=== PATIENT | female | born 1980 | race Caucasian/White ===

== ENCOUNTER 2022-02-14 20:23 | Emergency (ER) | payer OTHER, SELFPAY ==
[2022-02-14 20:25] VITALS: BP 137/85; PULSE 86; RESP 18; TEMP 36.5; O2SAT 100; BMI 28.8
--- NOTE | 2022-02-14 20:50 | PC.NURSE ---
PT given warm blanket for comfort
--- NOTE | 2022-02-14 20:58 | HMH.EDNVD ---
Discharge Plan Disposition Patient Disposition: Home, Self-Care Prescriptions Prescriptions: New ondansetron HCl 4 mg Tablet 4 mg PO Q8H PRN (Reason: Nausea) Qty: 21 0RF Referrals Follow up/Referrals: Provider,Referral, MD [Primary Care Provider] - See instructions Clinical Impressions Clinical Impression: COVID-19 Instructions Patient Instructions: DI for COVID-19 (Suspected or Confirmed ) Discharge ED Provider: Nael Llanos Nausea/Vomiting/Diarrhea HPI General Chief complaint: Nausea/Vomiting/Diarrhea Stated complaint: nausea,CLIFTON Time Seen by Provider: 02/14/22 20:58 Mode of Arrival: Ambulatory Source of Information: Patient and Medical Record Limitations: No Limitations Description of Symptoms (Recalled from ER Triage Doc. by RN): pt states nausea headache and no appitite since 5am pt tested positive for covid. pt states to have taken advil and excedrin 4hrs ago History of Present Illness HPI Narrative: pt with clifton and nausea w/o abd pain or vomiting - has been exposed to covid-19 complaint: nausea Onset (ago): hour(s) Associated Abdominal Pain: No Severity: moderate Context: sick contacts Associated symptoms: headaches Related Data Previous Rx's Medication Instructions Recorded ondansetron HCl 4 mg tablet 4 mg PO Q8H PRN Nausea #21 tabs 02/14/22 Allergies Allergy/AdvReac Type Severity Reaction Status Date / Time No Known Allergies Allergy Verified 02/14/22 20:58 PFSH PFSH Social History Smoking Status: Current every day smoker alcohol intake: never current occupational status: employed Travel in the last 8 weeks: None ROS Obtained: Yes All systems reviewed & no additional complaints except as documented Physical Exam General General appearance: alert Head Head exam: normocephalic Eye Eye exam: Present PERRL and EOMI ENT ENT exam: Present mucous membranes moist Neck Neck exam: Present full ROM and trachea midline; Absent meningismus or lymphadenopathy Respiratory Respiratory exam: Absent respiratory distress Cardiovascular Cardiovascular exam: Present regular rate Abdominal Exam Abdominal exam: Present soft; Absent tenderness or organomegaly Extremities Exam Extremities exam: Present full ROM Neurological Exam Neurological exam: Present alert, oriented X3 and CN II-XII intact Psychiatric Psychiatric exam: Present normal affect Skin Skin exam: Absent rash Medical Decision Making Medical Records Medical records reviewed: Yes I reviewed the patient's medical records. Matthew Inquiry Pt receiving controlled substance: No Vital Signs: 02/14/22 20:25 02/14/22 21:00 02/14/22 21:01 Temperature 97.7 F Temperature Source Oral Pulse Rate 61 68 Pulse Rate [Left] 86 Respiratory Rate 18 Blood Pressure 96/59 L 96/59 L Blood Pressure [Right Arm] 137/85 Blood Pressure Mean [Right Arm] 102 02 Sat by Pulse Oximetry 100 99 98 Oxygen Delivery Method Room Air Room Air Lab Data Lab results reviewed: Yes I reviewed the patient's lab results. Lab Results 02/14/22 20:30: Urine Color Yellow, Urine Appearance Clear, Urine pH 6.0, Ur Specific [place] >= 1.030, Urine Protein Negative, Urine Glucose (UA) Negative, Urine Ketones Negative, Urine Blood 1+, Urine Nitrate Negative, Urine Bilirubin Negative, Urine Urobilinogen 1.0, Ur Leukocyte Esterase Negative 02/14/22 20:30: SARS-CoV-2 (PCR) Detected A, Influenza A Untype (PCR) Not detected, Influenza Type B (PCR) Not detected 02/14/22 21:38: WBC 2.8 L, RBC 4.26, Hgb 13.3, Hct 40.5, MCV 95.1, MCH 31.1, MCHC 32.7, RDW 13.1, Plt Count 216, MPV 7.9, Neut % (Auto) 71.5, Lymph % (Auto) 13.1, [place] % (Auto) 12.1 H, Eos % (Auto) 0.6, Baso % (Auto) 2.6 H, Neut # (Auto) 2.0, Lymph # (Auto) 0.4 L, [place] # (Auto) 0.3, Eos # (Auto) 0.0, Baso # (Auto) 0.1 02/14/22 21:38: Sodium 142, Potassium 3.7, Chloride 106, Carbon Dioxide 24, Anion Gap 15.7 H, BUN 18 H, Creatinine 0.60, Estimated Creat Clear 126, Estimated GFR
[2022-02-14 21:00] VITALS: BP 96/59; PULSE 61; O2SAT 99
[2022-02-14 21:01] VITALS: BP 96/59; PULSE 68; O2SAT 98
--- NOTE | 2022-02-14 21:01 | PC.NURSE ---
verbal and writen order list per dr hawkins entered
[2022-02-14 21:43] LABS: Influenza A, PCR Not Detected (NotDetected); Influenza B, PCR Not Detected (NotDetected)
[2022-02-14 21:45] LABS: Microscopic, Urine URINE MICROSCOPIC (MICROSCOPIC)
[2022-02-14 21:46] LABS: Coronavirus 19, PCR Detected (NotDetected)
[2022-02-14 21:52] LABS: Basophils # 0.1 K/mm3 (0-0.2); Basophils % 2.6 % (0.1-2.0); Eosinophils % 0.6 % (0.1-12.0); Hematocrit 40.5 % (37.0-47.0); Hemoglobin 13.3 g/dL (12.2-16.2); Lymphocytes # 0.4 K/mm3 (0.7-4.5); Lymphocytes % 13.1 % (10-50); Mean Corpuscular HGB Conc 32.7 g/dL (31.8-35.4); Mean Corpuscular Hemoglobin 31.1 pg (27.0-31.2); Mean Corpuscular Volume 95.1 fl (81-99); Mean Platelet Volume 7.9 fl (7.4-10.4); Monocytes # 0.3 K/mm3 (0.1-1.0); Monocytes % 12.1 % (1.7-9.3); Neutrophils % 71.5 % (37.0-80.0); Platelet Count 216 K/mm3 (142-424); Red Blood Count 4.26 M/mm3 (4.20-5.40); Red Cell Distribution Width 13.1 % (11.5-17.5); White Blood Count 2.8 K/mm3 (4.8-10.8)
[2022-02-14 21:53] LABS: Appearance,Urine CLEAR (Clear); Bilirubin,Urine Negative (Negative); Blood, Urine 1+ (Negative); Color,Urine YELLOW (Yellow); Glucose,Urine (UA) Negative (Negative); Ketones,Urine Negative (Negative); Leukocyte Esterase,Urine Negative (Negative); Nitrate,Urine Negative (Negative); Protein,Urine Negative (Negative); Specific Gravity, Urine >= 1.030 (1.005-1.030)
[2022-02-14 21:54] LABS: Chloride 106 mmol/L (98-107); Potassium 3.7 mmoL/L (3.5-5.1); Sodium 142 mmol/L (136-145)
[2022-02-14 21:56] LABS: Alanine Aminotransferase 14 U/L (12-78); Amylase 50 U/L (30-110); Anion Gap 15.7 mEq/L (5-15); Aspartate Amino Transferase 21 U/L (14-36); Blood Urea Nitrogen 18 mg/dl (7-17); Carbon Dioxide 24 mmol/L (22.0-30.0); Creatinine Clearance Estimated 126 mL/min (50-200); Estimated Glomerular Filt Rate 110 ml/min (>60); GFR (African American) 133 ML/MIN (>60); Lipase 31 U/L (23-300)
[2022-02-14 21:57] LABS: Albumin Level 3.9 g/dl (3.5-5.0); Albumin/Globulin Ratio 1.4 (1.1-1.8); Alkaline Phosphatase 36 U/L (38-126); Calcium 8.5 mg/dl (8.4-10.2); Globulin 2.8 g/dL (1.3-3.2); Glucose 95 mg/dl (74-100); Total Protein,Serum 6.7 g/dl (6.3-8.2)
[2022-02-14 21:58] LABS: Bilirubin,Total < 0.1 mg/dl (0.2-1.3)
--- NOTE | 2022-02-14 22:11 | PC.NURSE ---
Pt complains of nausea. RN notified.
[2022-02-14 22:16] LABS: Bacteria,Urine 1+ /lpf; Mucus,Urine 1+ /lpf
[2022-02-14 22:47] VITALS: BP 104/69; PULSE 75; RESP 16; TEMP 36.7; O2SAT 97
== END 2022-02-14 22:47 | disposition home or self-care (01) ==
PROVIDERS: Emergency Provider Emergency Medicine
DX: U07.1 COVID-19 (principal); R11.2 Nausea with vomiting, unspecified; R19.7 Diarrhea, unspecified; F17.210 Nicotine dependence, cigarettes, uncomplicated; Z79.899 Other long term (current) drug therapy
CPT/HCPCS: 80053; 81001; 82150; 83690; 85025; 96361; 96374; 96375; 99284; C9803; J2405; U0003; U0005

== ENCOUNTER 2022-10-24 13:28 | Emergency (ER) | payer OTHER, SELFPAY ==
[2022-10-24 13:29] VITALS: BP 168/88; PULSE 71; RESP 16; TEMP 36.7; O2SAT 97; BMI 26.2
--- NOTE | 2022-10-24 13:46 | HMH.EDGENADL ---
Discharge Plan Disposition Patient Disposition: Home, Self-Care Prescriptions Prescriptions: New ondansetron 4 mg tablet,disintegrating 4 mg PO Q6H PRN (Reason: nausea and vomiting) 5 Days Qty: 20 0RF No Action ondansetron HCl 4 mg Tablet 4 mg PO Q8H PRN (Reason: Nausea) Qty: 21 0RF Referrals Follow up/Referrals: Provider,Referral, MD [Primary Care Provider] - See instructions Clinical Impressions Clinical Impression: URI (upper respiratory infection), Encounter for smoking cessation counseling, Nausea & vomiting Discharge ED Provider: Steve Barriga General Adult HPI General Chief complaint: Upper Respiratory Infection Stated complaint: Cough chest congestion nausea headache Time Seen by Provider: 10/24/22 13:46 Mode of Arrival: Ambulatory Source of Information: Patient Limitations: No Limitations Description of Symptoms (Recalled from ER Triage Doc. by RN): 42 yo F presents to ED with c/o cough, nausea, chest congestion, sore throat. symptoms began last night. pt states that she was around her mother 10/21/22 and she has pneumonia. pt thinks that she may have gotten something from her mother. History of Present Illness HPI narrative: Patient is a 42-year-old female with a history of chronic smoking presenting today with some respiratory complaints. She states she has been around her mother recently was diagnosed with pneumonia and over the last 24 hours she states she has had muscle aches as well as a cough and just overall not feeling well. She denies any fever denies any respiratory distress or wheezing or history of obstructive lung disease. She has not been smoking over the last 48 hours. Related Data Previous Rx's Medication Instructions Recorded ondansetron HCl 4 mg tablet 4 mg PO Q8H PRN Nausea #21 tabs 02/14/22 ondansetron 4 mg disintegrating 4 mg PO Q6H PRN nausea and 10/24/22 tablet vomiting 5 days #20 tabs Allergies Allergy/AdvReac Type Severity Reaction Status Date / Time No Known Allergies Allergy Verified 02/14/22 20:58 [facility] Disclaimer: The information contained in this section may have been updated after the patient was seen, as this information can be updated by other users. Social History (Updated 02/14/22 @ 22:19 by Nael Llanos MD) Smoking Status: Current every day smoker alcohol intake: never current occupational status: employed Travel in the last 8 weeks: None ROS Obtained: Yes All systems reviewed & no additional complaints except as documented Physical Exam General General appearance: alert Respiratory Respiratory exam: Present normal lung sounds bilaterally; Absent respiratory distress Cardiovascular Cardiovascular exam: Present regular rate, normal rhythm and bradycardia Neurological Exam Neurological exam: Present alert and oriented X3 Medical Decision Making Matthew Inquiry Pt receiving controlled substance: No Vital Signs: 10/24/22 13:29 Temperature 98.0 F Temperature Source Oral Pulse Rate [Left] 71 Respiratory Rate 16 Blood Pressure [Right Arm] 168/88 H Blood Pressure Mean [Right Arm] 114 02 Sat by Pulse Oximetry 97 Lab Data Lab results reviewed: Yes I reviewed the patient's lab results. Lab Results 10/24/22 13:34: SARS-CoV-2 (PCR) Not detected, Influenza A Untype (PCR) Not detected, Influenza Type B (PCR) Not detected Orders (Tests/Meds): ED MEDICATIONS Discontinued Medications Generic Name Dose Route Start Last Admin Trade Name Freq PRN Reason Stop Dose Admin Albuterol Sulfate 4 puff 10/24/22 13:50 10/24/22 14:04 Albuterol-Hfa 90mcg/Puff Inhaler 8gm IH 10/24/22 13:51 4 puff ONCE ONE Administration Ibuprofen 800 mg 10/24/22 13:50 10/24/22 13:59 Ibuprofen 400 Mg Tablet PO 10/24/22 13:51 800 mg ONCE ONE Administration Miscellaneous 1 unit 10/24/22 13:50 10/24/22 14:04 Aerochamber/Optihaler MC 10/24/22 13:51 1 unit ONCE ONE Administration Ondansetron HCl 4 m
--- NOTE | 2022-10-24 13:50 | XR_ITS ---
FINAL REPORT CLINICAL HISTORY: Acute cough FINDINGS: There is no evidence of effusion or other pleural disease. The mediastinum has a normal appearance. The cardiac silhouette is unremarkable. IMPRESSION: Unremarkable chest exam. Reviewed, Interpreted and Dictated by Radames Staples MD Transcribed by Annabella Banerjee Authenticated and [facility]
[2022-10-24 13:53] LABS: Coronavirus 19, PCR Not Detected (NotDetected); Influenza A, PCR Not Detected (NotDetected); Influenza B, PCR Not Detected (NotDetected)
--- NOTE | 2022-10-24 14:01 | PC.NURSE ---
called RT for inhaler and education
[2022-10-24 14:31] VITALS: BP 122/72; PULSE 72; RESP 20; O2SAT 95
[2022-10-24 15:37] VITALS: BP 129/78; PULSE 81; RESP 20; TEMP 36.7; O2SAT 96
== END 2022-10-24 15:38 | disposition home or self-care (01) ==
PROVIDERS: Emergency Provider Student in an Organized Health Care Education/Training Program
DX: J06.9 Acute upper respiratory infection, unspecified (principal); R11.2 Nausea with vomiting, unspecified; F17.200 Nicotine dependence, unspecified, uncomplicated
CPT/HCPCS: 71046; 87636; 99283; 99284; C9803; U0003; U0005

== ENCOUNTER 2023-01-07 20:54 | Emergency (ER) | payer OTHER, SELFPAY ==
[2023-01-07 20:55] VITALS: BP 159/108; PULSE 82; RESP 20; TEMP 37.1; O2SAT 100; BMI 26.2
[2023-01-07 21:05] LABS: Coronavirus 19, PCR Not Detected (NotDetected); Influenza A, PCR Not Detected (NotDetected); Influenza B, PCR Not Detected (NotDetected)
--- NOTE | 2023-01-07 21:06 | ECG_ITS ---
APPROVED REPORT Exam: Resting ECG HR:80 bpm ECG Measurements Heart Rate 80 AXES SC 146 P 78 QRSd 90 QRS 55 QT 355 T 57 QTc 391 Conclusion SINUS RHYTHM WITH SINUS ARRHYTHMIA RIGHT ATRIAL abnormality [0.25mV P-WAVE] BORDERLINE ECG UNCONFIRMED REPORT Electronically signed by : Austin Stafford MD 01/09/2023 19:46:43
--- NOTE | 2023-01-07 21:09 | XR_ITS ---
PROCEDURE INFORMATION: Exam: XR Chest Exam date and time: 01/07/2023 9:12 PM Age: 42 years old Clinical indication: Cough; Additional info: Congestion TECHNIQUE: Imaging protocol: Radiologic exam of the chest. Views: 1 view. COMPARISON: CR XR CHEST 2V 10/24/2022 1:53 PM FINDINGS: Lungs: Unremarkable. No consolidation. Pleural spaces: Unremarkable. No pleural effusion. No pneumothorax. Heart/Mediastinum: Unremarkable. No cardiomegaly. Bones/joints: Unremarkable. IMPRESSION: No acute pulmonary findings.
[2023-01-07 21:20] LABS: Strep Scrn Group A (Rapid) Negative (Negative)
--- NOTE | 2023-01-07 21:25 | HMH.EDGENADL ---
Discharge Plan Disposition Patient Disposition: Home, Self-Care Condition: Fair Chief Complaint: Upper Respiratory Infection Prescriptions Prescriptions: No Action ondansetron HCl 4 mg Tablet 4 mg PO Q8H PRN (Reason: Nausea) Qty: 21 0RF ondansetron 4 mg tablet,disintegrating 4 mg PO Q6H PRN (Reason: nausea and vomiting) 5 Days Qty: 20 0RF Referrals Follow up/Referrals: Juliocesar Hobson [Primary Care Provider] - See instructions Activity Restrictions/Add. Instructions Additional Instructions/Restrictions: At this time is felt you are safe to be discharged home. If new or worsening symptoms please do not hesitate to return the emergency department. Clinical Impressions Clinical Impression: Bronchitis Instructions Patient Instructions: DI for Acute Bronchitis Discharge ED Provider: Joshua Nixon General Adult HPI General Chief complaint: Upper Respiratory Infection Stated complaint: SOA, nausea, headache Time Seen by Provider: 01/07/23 21:22 Mode of Arrival: Ambulatory Source of Information: Patient Limitations: No Limitations Description of Symptoms (Recalled from ER Triage Doc. by RN): pt reports 4 days of cough, sore thraot congestion and nausea, reports she feels as if she has to sit straight up to be able to breathe. History of Present Illness HPI narrative: Patient is a 42-year-old female no pertinent past medical history who presents emergency department for evaluation of cough, shortness of breath, sore throat, congestion. Onset was acute, occurring Sunday. Patient has had diffuse body aches and just generalized feeling unwell. He is a chronic smoker. No other acute complaints at this time. Related Data Previous Rx's Medication Instructions Recorded ondansetron HCl 4 mg tablet 4 mg PO Q8H PRN Nausea #21 tabs 02/14/22 ondansetron 4 mg disintegrating 4 mg PO Q6H PRN nausea and 10/24/22 tablet vomiting 5 days #20 tabs Allergies Allergy/AdvReac Type Severity Reaction Status Date / Time No Known Allergies Allergy Verified 02/14/22 20:58 [facility] Disclaimer: The information contained in this section may have been updated after the patient was seen, as this information can be updated by other users. Social History (Updated 02/14/22 @ 22:19 by Nael Llanos MD) Smoking Status: Current every day smoker alcohol intake: never current occupational status: employed Travel in the last 8 weeks: None ROS Obtained: Yes Systems reviewed as appropriate & no additional complaints except as documented Physical Exam General General appearance: alert and in no apparent distress Head Head exam: atraumatic and normocephalic Eye Eye exam: Present PERRL and EOMI ENT ENT exam: Present mucous membranes moist and other (Erythematous posterior oropharynx, uvula midline) Neck Neck exam: Present normal inspection Chest Chest inspection: Present normal inspection and symmetric chest wall rise Respiratory Respiratory exam: Absent normal lung sounds bilaterally (Scant wheezing left base) or respiratory distress Cardiovascular Cardiovascular exam: Present regular rate and normal rhythm Abdominal Exam Abdominal exam: Present soft; Absent tenderness Extremities Exam Extremities exam: Present normal inspection Neurological Exam Neurological exam: Present alert Psychiatric Psychiatric exam: Present normal affect Skin Skin exam: Present warm and dry Medical Decision Making Matthew Inquiry Pt receiving controlled substance: No Vital Signs: 01/07/23 20:55 01/07/23 21:30 01/07/23 22:00 Temperature 98.8 F Temperature Source Oral Pulse Rate 71 60 Pulse Rate [Right] 82 Respiratory Rate 20 Blood Pressure 137/100 H 138/79 Blood Pressure [Right Arm] 159/108 H Blood Pressure Mean 112 98 Blood Pressure Mean [Right Arm] 125 Blood Pressure Source [Right Arm] Automatic Cuff Blood Pressure Position [Right Arm] Sitting 02 Sat by Pulse Oximetry 100 97 95 Oxygen
[2023-01-07 21:30] VITALS: BP 137/100; PULSE 71; O2SAT 97
[2023-01-07 22:00] VITALS: BP 138/79; PULSE 60; O2SAT 95
[2023-01-07 22:34] VITALS: PULSE 77; PULSE 78
[2023-01-07 23:15] VITALS: BP 138/79; PULSE 80; RESP 20; TEMP 36.9
== END 2023-01-07 23:17 | disposition home or self-care (01) ==
PROVIDERS: Emergency Provider Emergency Medicine; PCP Pediatrics
DX: J20.9 Acute bronchitis, unspecified (principal); R11.0 Nausea; R06.02 Shortness of breath; F17.200 Nicotine dependence, unspecified, uncomplicated
CPT/HCPCS: 71045; 87430; 87636; 93005; 99284

== ENCOUNTER 2023-02-08 07:39 | Emergency (ER) | payer OTHER, SELFPAY ==
[2023-02-08 07:41] VITALS: BP 175/96; PULSE 81; RESP 16; TEMP 36.7; O2SAT 97; BMI 27.8
--- NOTE | 2023-02-08 07:52 | PC.NURSE ---
Dr. Cervantes at BS for pt eval
--- NOTE | 2023-02-08 08:03 | HMH.EDGENADL ---
Discharge Plan Disposition Patient Disposition: Home, Self-Care Condition: Good Prescriptions Prescriptions: New ondansetron 4 mg tablet,disintegrating 4 mg PO Q8H PRN (Reason: nausea and vomiting) 4 Days Qty: 12 0RF No Action ondansetron HCl 4 mg Tablet 4 mg PO Q8H PRN (Reason: Nausea) Qty: 21 0RF ondansetron 4 mg tablet,disintegrating 4 mg PO Q6H PRN (Reason: nausea and vomiting) 5 Days Qty: 20 0RF Referrals Follow up/Referrals: Alexi Mccoy MD [Primary Care Provider] - See instructions Activity Restrictions/Add. Instructions Additional Instructions/Restrictions: You were evaluated in the emergency department today and diagnosed with COVID-19. Please pick and shovel man your prescription for Zofran to take as needed for nausea and vomiting. Take Tylenol and ibuprofen at home as needed for pain and fever. Hydrate is much as possible. Follow-up with your primary care provider for reassessment. Return to the emergency department for new or worsening symptoms. Clinical Impressions Clinical Impression: COVID-19 Stand Alone Forms Stand Alone Forms: Work/School Release Instructions Patient Instructions: DI for COVID-19 (Suspected or Confirmed ) Discharge ED Provider: Chantal Cervantes General Adult HPI General Chief complaint: Headache Stated complaint: esparza nausea Time Seen by Provider: 02/08/23 07:49 Mode of Arrival: Ambulatory Source of Information: Patient Limitations: No Limitations Description of Symptoms (Recalled from ER Triage Doc. by RN): 42 yo F presents to ED with c/o nausea, headache. symptoms began yesterday. pt reports exposure to covid by daughter on 02/03/23. History of Present Illness HPI narrative: This patient is a 42-year-old female who denies significant past medical history presenting to the emergency department for evaluation with concern for headache and nausea that started yesterday. She reports recent exposure to COVID by her daughter. She states that the headache is mild in intensity and was gradual in onset. She took Excedrin with some relief. The headache is actually improved today, but her nausea has been persistent. She states that she wanted to see her primary care provider, however they were unable to work her in today. She denies any fevers, chills, sore throat, cough, congestion, chest pain, shortness of breath, abdominal pain, vomiting, changes in bowel movements, dysuria, polyuria, rashes, swelling, vision changes, numbness, tingling, or other concerns. She has not taken any medications this morning for symptoms. Related Data Previous Rx's Medication Instructions Recorded ondansetron HCl 4 mg tablet 4 mg PO Q8H PRN Nausea #21 tabs 02/14/22 ondansetron 4 mg disintegrating 4 mg PO Q6H PRN nausea and 10/24/22 tablet vomiting 5 days #20 tabs ondansetron 4 mg disintegrating 4 mg PO Q8H PRN nausea and 02/08/23 tablet vomiting 4 days #12 tabs Allergies Allergy/AdvReac Type Severity Reaction Status Date / Time No Known Allergies Allergy Verified 02/14/22 20:58 [facility] Disclaimer: The information contained in this section may have been updated after the patient was seen, as this information can be updated by other users. Social History Smoking Status: Current every day smoker alcohol intake: never current occupational status: employed Travel in the last 8 weeks: None ROS Obtained: Yes All systems reviewed & no additional complaints except as documented Physical Exam General General appearance: alert and in no apparent distress Head Head exam: atraumatic and normocephalic Eye Eye exam: Present normal appearance, PERRL and EOMI ENT ENT exam: Present normal exam, normal oropharynx, mucous membranes moist and normal external ear exam Neck Neck exam: Present normal inspection, full ROM and trachea midline; Absent tenderness Chest Chest inspection: Present normal inspection and symmetric
[2023-02-08 08:10] LABS: Influenza A, PCR Not Detected (NotDetected); Influenza B, PCR Not Detected (NotDetected)
[2023-02-08 08:31] VITALS: BP 123/92; PULSE 95; O2SAT 94
[2023-02-08 08:45] LABS: Coronavirus 19, PCR Detected (NotDetected)
--- NOTE | 2023-02-08 08:46 | PC.NURSE ---
Dr. Cervantes at BS to update pt
[2023-02-08 09:00] VITALS: BP 125/92; PULSE 87; RESP 17; TEMP 36.7; O2SAT 97
== END 2023-02-08 09:00 | disposition home or self-care (01) ==
PROVIDERS: Emergency Provider Emergency Medicine; PCP Pediatrics
DX: R51.9 Headache, unspecified (principal); U07.1 COVID-19; R11.0 Nausea; F17.200 Nicotine dependence, unspecified, uncomplicated
CPT/HCPCS: 87636; 96372; 99283

== ENCOUNTER 2023-06-15 10:06 | Emergency (ER) | payer OTHER, SELFPAY ==
[2023-06-15 10:08] VITALS: BP 154/95; PULSE 97; RESP 16; TEMP 37; O2SAT 95; BMI 27.2
[2023-06-15 10:27] LABS: Coronavirus 19, PCR Not Detected (NotDetected); Influenza B, PCR Not Detected (NotDetected)
[2023-06-15] MEDS: ONDANSETRON 4MG ODT 4 MG SL (10:50)
--- NOTE | 2023-06-15 10:50 | ED_ITS ---
Discharge Plan Disposition Patient Disposition: Home, Self-Care Prescriptions Prescriptions: New ondansetron 4 mg tablet,disintegrating 4 mg PO Q6H PRN (Reason: nausea and vomiting) Qty: 10 0RF oseltamivir [Tamiflu] 75 mg capsule 75 mg PO BID 5 Days Qty: 10 0RF No Action ondansetron HCl 4 mg Tablet 4 mg PO Q8H PRN (Reason: Nausea) Qty: 21 0RF ondansetron 4 mg tablet,disintegrating 4 mg PO Q6H PRN (Reason: nausea and vomiting) 5 Days Qty: 20 0RF ondansetron 4 mg tablet,disintegrating 4 mg PO Q8H PRN (Reason: nausea and vomiting) 4 Days Qty: 12 0RF Referrals Follow up/Referrals: Jay Hobson II, MD [Primary Care Provider] - See instructions Activity Restrictions/Add. Instructions Additional Instructions/Restrictions: Call your family doctor to establish care for this visit to the emergency department and schedule follow-up within 48 hours to ensure improvement. If you have any worsening of your condition or any other concerning signs or symptoms, return to the emergency department or your primary care doctor for further evaluation. Clinical Impressions Clinical Impression: Influenza Discharge ED Provider: Ghanshyam Woody General Adult HPI General Chief complaint: Upper Respiratory Infection Stated complaint: fever, cough, congestion, pain L ear, nausea Time Seen by Provider: 06/15/23 10:13 Mode of Arrival: Ambulatory Source of Information: Patient Limitations: No Limitations Description of Symptoms (Recalled from ER Triage Doc. by RN): Patient reports headache, fever and congestion since yesterday. History of Present Illness HPI narrative: 42-year-old female no red no presenting with multiple complaints. She states that she has been around multiple people that have flu a positivity in the last couple of days. Started having symptoms yesterday. Fevers, body aches, headaches, nausea without vomiting. Took Excedrin Migraine and this helped significantly. with all but nausea Related Data Previous Rx's Medication Instructions Recorded ondansetron HCl 4 mg tablet 4 mg PO Q8H PRN Nausea #21 tabs 02/14/22 ondansetron 4 mg disintegrating 4 mg PO Q6H PRN nausea and 10/24/22 tablet vomiting 5 days #20 tabs ondansetron 4 mg disintegrating 4 mg PO Q8H PRN nausea and 02/08/23 tablet vomiting 4 days #12 tabs ondansetron 4 mg disintegrating 4 mg PO Q6H PRN nausea and 06/15/23 tablet vomiting #10 tabs oseltamivir 75 mg capsule (Tamiflu) 75 mg PO BID 5 days #10 caps 06/15/23 Allergies Allergy/AdvReac Type Severity Reaction Status Date / Time No Known Allergies Allergy Verified 02/14/22 20:58 [facility] Disclaimer: The information contained in this section may have been updated after the patient was seen, as this information can be updated by other users. Social History Smoking Status: Current every day smoker alcohol intake: never current occupational status: employed Travel in the last 8 weeks: None ROS Obtained: Yes All systems reviewed & no additional complaints except as documented Physical Exam General General appearance: alert and in no apparent distress Head Head exam: atraumatic and normocephalic Eye Eye exam: Present normal appearance, PERRL and EOMI ENT ENT exam: Present mucous membranes moist Neck Neck exam: Present normal inspection, full ROM and trachea midline Respiratory Respiratory exam: Absent respiratory distress, wheezes, stridor, accessory m uscle use or prolonged expiratory phase Cardiovascular Cardiovascular exam: Present normal rhythm Abdominal Exam Abdominal exam: Present soft; Absent distention, tenderness, guarding, rebound or rigidity Extremities Exam Extremities exam: Absent edema Neurological Exam Neurological exam: Present alert, oriented X3, CN II-XII intact and normal gait; Absent motor sensory deficit Skin Skin exam: Present warm and dry; Absent diaphoresis or erythema Medical Decision Making Medical Records Medical records reviewed: Yes I reviewed the patient's medical records. Matthew Inquiry Pt receiving controlled substance: No Matthew was queried for this patient: No Vital Signs: 06/15/23 10:08 06/15/23 11:10 Temperature 98.6 F Temperature Source Oral Pulse Rate 74 Pulse Rate [Radial] 97 H Respiratory Rate 16 16 Blood Pressure 145/79 H Blood Pressure [Right Arm] 154/95 H Blood Pressure Mean [Right Arm] 114 Blood Pressure Source [Right Arm] Automatic Cuff Blood Pressure Position [Right Arm] Sitting 02 Sat by Pulse Oximetry 95 93 L Oxygen Delivery Method Room Air Room Air Lab Data Lab Results 06/15/23 10:15: SARS-CoV-2 (PCR) Not detected, Influenza A Untype (PCR) Detected A, Influenza Type B (PCR) Not detected Orders (Tests/Meds): ED MEDICATIONS Discontinued Medications Generic Name Dose Route Start Last Admin Trade Name Tj PRN Reason Stop Dose Admin Ondansetron HCl 4 mg 06/15/23 10:45 06/15/23 10:50 Ondansetron 4mg Odt SL 06/15/23 10:46 4 mg ONCE ONE Administration ORDERS Category Date Time Status Rapid PCR Covid and Flu A/B Stat Lab 06/15/23 10:15 Completed Medical Decision Narrative: 42-year-old female no red no presenting with multiple complaints. She states that she has been around multiple people that have flu a positivity in the last couple of days. Started having symptoms yesterday. Fevers, body aches, headaches, nausea without vomiting. Took Excedrin Migraine and this helped significantly. with all but nausea. History obtained with patient. On evaluation, patient normotensive, nontachycardic, well-appearing, but appears to be uncomfortable. Pale. No acute respiratory distress, cardiopulmonary exam within normal limits. Differential includes flu viral syndrome versus other viral syndrome. Patient was given Zofran for nausea. Swab significant for influenza A positivity. Because patient at baseline without signs or symptoms of clinical decompensation, deemed appropriate for discharge. Results were relayed to patient who voiced understanding and were agreeable to outpatient management and follow up. At the time of discharge the patient was hemodynamically stable, tolerating PO, and mobilizing appropriately. Tamiflu and Zofran sent to pharmacy. Critical Care Critical Care Time Critical Care Time: No
[2023-06-15 11:10] VITALS: BP 145/79; PULSE 74; RESP 16; O2SAT 93
[2023-06-15 11:20] LABS: Influenza A, PCR Detected (NotDetected)
[2023-06-15 11:37] VITALS: BP 140/73; PULSE 69; RESP 18; TEMP 36.8; O2SAT 93
== END 2023-06-15 11:38 | disposition home or self-care (01) ==
PROVIDERS: Emergency Provider Emergency Medicine; PCP Radiology Radiation Oncology
DX: J10.1 Influenza due to other identified influenza virus with other respiratory manifestations (principal); J10.2 Influenza due to other identified influenza virus with gastrointestinal manifestations; R50.9 Fever, unspecified; R05.9 Cough, unspecified; R09.81 Nasal congestion; H92.02 Otalgia, left ear; R11.0 Nausea; R51.9 Headache, unspecified; F17.200 Nicotine dependence, unspecified, uncomplicated
CPT/HCPCS: 87636; 99283

== ENCOUNTER 2024-10-04 20:40 | Emergency (ER) | payer OTHER, SELFPAY ==
[2024-10-04 21:49] VITALS: BP 132/94; PULSE 97; RESP 18; TEMP 36.8; O2SAT 97; BMI 28.6
[2024-10-04 22:04] LABS: Coronavirus 19, PCR Not Detected (NotDetected); Influenza A, PCR Not Detected (NotDetected); Influenza B, PCR Not Detected (NotDetected)
--- NOTE | 2024-10-04 22:36 | XR_ITS ---
PROCEDURE INFORMATION: Exam: XR Chest Exam date and time: 10/04/2024 11:19 PM Age: 44 years old Clinical indication: Cough; Additional info: Cough and congestion TECHNIQUE: Imaging protocol: Radiologic exam of the chest. Views: 2 views. COMPARISON: CR XR CHEST PORTABLE 01/07/2023 9:12 PM FINDINGS: Lungs: Unremarkable. No consolidation. Pleural spaces: Unremarkable. No pleural effusion. No pneumothorax. Heart/Mediastinum: Unremarkable. No cardiomegaly. Bones/joints: Unremarkable. IMPRESSION: No acute findings.
--- NOTE | 2024-10-04 23:38 | ED_ITS ---
Discharge Plan Disposition Patient Disposition: Home, Self-Care Condition: Good Prescriptions Prescriptions: New doxycycline hyclate 100 mg capsule 100 mg PO BID 5 Days Qty: 10 0RF prednisone 20 mg tablet 40 mg PO DAILY 4 Days Qty: 8 0RF No Action ondansetron HCl 4 mg Tablet 4 mg PO Q8H PRN (Reason: Nausea) Qty: 21 0RF ondansetron 4 mg tablet,disintegrating 4 mg PO Q6H PRN (Reason: nausea and vomiting) 5 Days Qty: 20 0RF ondansetron 4 mg tablet,disintegrating 4 mg PO Q8H PRN (Reason: nausea and vomiting) 4 Days Qty: 12 0RF ondansetron 4 mg tablet,disintegrating 4 mg PO Q6H PRN (Reason: nausea and vomiting) Qty: 10 0RF oseltamivir [Tamiflu] 75 mg capsule 75 mg PO BID 5 Days Qty: 10 0RF Referrals Follow up/Referrals: Provider,Referral, MD [Primary Care Provider] - See instructions Activity Restrictions/Add. Instructions Additional Instructions/Restrictions: You were evaluated in the ER and are believed to be appropriate for discharge at this time. Use the provided albuterol inhaler 2 puffs every 6 hours as needed for shortness of breath. Take the prescribed antibiotics as directed, do not skip doses, do not stop taking them early. Take this antibiotic with a full glass of water and stay sitting up for 30 minutes after taking it to avoid side effects. Also take the prescribed prednisone as directed. As discussed, I highly recommend stopping smoking to improve your overall wellbeing as well as the health of your lungs. Please make an appointment with your primary care doctor for reevaluation in 3 days. Return to the ER with any new, worsening, or otherwise concerning symptoms. Clinical Impressions Clinical Impression: COPD exacerbation, Cough Stand Alone Forms Stand Alone Forms: Work/School Release Print Language Print Language: Wolof Discharge ED Provider: Joshua Nixon General Adult HPI <Joshua Nixon MD - Last Filed: 10/04/24 23:46> General Chief complaint: Upper Respiratory Infection Stated complaint: cough,nausea,christo,weakness Time Seen by Provider: 10/04/24 22:11 Mode of Arrival: Ambulatory Source of Information: Patient Description of Symptoms (Recalled from ER Triage Doc. by RN): Pt presents for evaluation of chest congestion. Pt states she has tried mucinex and now has chills, diarrhea and fatigue History of Present Illness HPI narrative: Patient is a 44-year-old female past medical history of COPD who presents [facility] for evaluation of cough, congestion, diarrhea. Onset was acute, over the last 2 weeks. Positive sick contacts at home. No chest pain. No other acute complaints at this time. Related Data Previous Rx's ?Medication ?Instructions ?Recorded ondansetron HCl 4 mg tablet 4 mg PO Q8H PRN Nausea #21 tabs 02/14/22 ondansetron 4 mg disintegrating 4 mg PO Q6H PRN nausea and 10/24/22 tablet vomiting 5 days #20 tabs ondansetron 4 mg disintegrating 4 mg PO Q8H PRN nausea and 02/08/23 tablet vomiting 4 days #12 tabs ondansetron 4 mg disintegrating 4 mg PO Q6H PRN nausea and 06/15/23 tablet vomiting #10 tabs oseltamivir 75 mg capsule (Tamiflu) 75 mg PO BID 5 days #10 caps 06/15/23 doxycycline hyclate 100 mg capsule 100 mg PO BID 5 days #10 caps 10/04/24 prednisone 20 mg tablet 40 mg (2 x 20 mg) PO DAILY 4 days 10/04/24 #8 tabs Allergies Allergy/AdvReac Type Severity Reaction Status Date / Time No Known Allergies Allergy Verified 02/14/22 20:58 [facility] <Joshua Nixon MD - Last Filed: 10/04/24 23:46> [facility] Disclaimer: The information contained in this section may have been updated after the patient was seen, as this information can be updated by other users. Social History Smoking Status: Current every day smoker alcohol intake: never current occupational status: employed Travel in the last 8 weeks?: None Have you lived/traveled outside US in past 30 days?: No Contact w/someone who lives/traveled outside US past 30 days?: No Exposure to someone with infectious disease in past 14 days?: No Do you have a fever (greater than 100.4 F or 38 C)?: No Have you tested positive for COVID-19?: No Exposed to someone with COVID-19 in past 14 days?: No Do you have a sore throat?: No Do you have a cough?: No Do you have any weakness?: No Do you have any diarrhea?: No Are you experiencing any unusual bleeding?: No Do you have any muscle aches/pain?: No Do you have any abdominal pain?: No Are you experiencing loss of taste or smell?: No <Joshua Nixon MD - Last Filed: 10/04/24 23:46> ROS Obtained: Yes Systems reviewed as appropriate & no additional complaints except as documented Physical Exam <Joshua Nixon MD - Last Filed: 10/04/24 23:46> General General appearance: alert and in no apparent distress Head Head exam: atraumatic and normocephalic Eye Eye exam: Present PERRL and EOMI ENT ENT exam: Present mucous membranes moist Neck Neck exam: Present normal inspection Chest Chest inspection: Present normal inspection and symmetric chest wall rise Respiratory Respiratory exam: Present wheezes (Scant expiratory phase all lung medrano); Absent normal lung sounds bilaterally or respiratory distress Cardiovascular Cardiovascular exam: Present regular rate and normal rhythm Abdominal Exam Abdominal exam: Present soft; Absent tenderness Extremities Exam Extremities exam: Present normal inspection Neurological Exam Neurological exam: Present alert Psychiatric Psychiatric exam: Present normal affect Skin Skin exam: Present warm and dry Medical Decision Making <Joshua Nixon MD - Last Filed: 10/04/24 23:46> Medical Records Screening: Per USPSTF and CDC recommendations, given the prevalence of disease in our region, it is our hospital?s policy to screen for HIV and viral Hepatitis for all patients aged 18 and over and those with ongoing risk factors. Matthew Inquiry Pt receiving controlled substance: No Vital Signs: 10/04/24 21:49 10/04/24 23:49 Temperature 98.3 F 98.1 F Temperature Source Oral Pulse Rate 88 Pulse Rate [Right] 97 H Respiratory Rate 18 16 Blood Pressure 128/87 Blood Pressure [Right Arm] 132/94 H Blood Pressure Mean [Right Arm] 106 Blood Pressure Source [Right Arm] Automatic Cuff Blood Pressure Position [Right Arm] Sitting 02 Sat by Pulse Oximetry 97 Oxygen Delivery Method Room Air Room Air Lab Data Lab Results 10/04/24 21:53: SARS-CoV-2 (PCR) Not detected, Influenza A Untype (PCR) Not detected, Influenza Type B (PCR) Not detected Orders (Tests/Meds): ED MEDICATIONS Discontinued Medications Generic Name Dose Route Start Last Admin Trade Name Tj PRN Reason Stop Dose Admin Albuterol Sulfate 4 puff 10/04/24 23:28 10/04/24 23:52 Albuterol-Hfa 90mcg/Puff Inhaler 8gm IH 10/04/24 23:29 4 puff ONCE ONE Administration Doxycycline Hyclate 100 mg 10/04/24 23:26 10/04/24 23:52 Doxycycline Hycl 100 Mg Tablet PO 10/04/24 23:27 100 mg ONCE ONE Administration Miscellaneous 1 unit 10/04/24 23:28 10/04/24 23:52 Aerochamber/Optihaler MC 10/04/24 23:29 1 unit ONCE ONE Administration Prednisone 40 mg 10/04/24 23:24 10/04/24 23:52 Prednisone 20mg Tab PO 10/04/24 23:25 40 mg ONCE ONE Administration ORDERS Category Date Time Status CXR 2 view (NOT portable) [XR chest 2V] Stat Exams 10/04/24 22:36 Taken Rapid PCR Covid and Flu A/B Stat Lab 10/04/24 21:53 Completed Medical Decision Narrative: In summary patient is a 44-year-old female past medical history described above who presents emergency department for evaluation of cough in the setting of COPD. Patient is hemodynamically stable nontoxic-appearing upon, afebrile. I suspect patient is having a mild COPD exacerbation presumably from sick co ntacts. Differential includes pneumonia, among others. Initial workup be conducted with two-view chest x-ray. Initial inventions include prednisone, albuterol, doxycycline. Hematologic labs were considered but patient is well- appearing otherwise will be deferred at this point, no chest pain to warrant troponin. Chest x-ray and repeat evaluation pending at time of transfer of care to the oncoming physician, Dr. Wilkinson. <Vickie Wilkinson MD - Last Filed: 10/05/24 00:29> Vital Signs: 10/04/24 21:49 10/04/24 23:49 Temperature 98.3 F 98.1 F Temperature Source Oral Pulse Rate 88 Pulse Rate [Right] 97 H Respiratory Rate 18 16 Blood Pressure 128/87 Blood Pressure [Right Arm] 132/94 H Blood Pressure Mean [Right Arm] 106 Blood Pressure Source [Right Arm] Automatic Cuff Blood Pressure Position [Right Arm] Sitting 02 Sat by Pulse Oximetry 97 Oxygen Delivery Method Room Air Room Air Lab Data Lab Results 10/04/24 21:53: SARS-CoV-2 (PCR) Not detected, Influenza A Untype (PCR) Not detected, Influenza Type B (PCR) Not detected Orders (Tests/Meds): ED MEDICATIONS Discontinued Medications Generic Name Dose Route Start Last Admin Trade Name Tj PRN Reason Stop Dose Admin Albuterol Sulfate 4 puff 10/04/24 23:28 10/04/24 23:52 Albuterol-Hfa 90mcg/Puff Inhaler 8gm IH 10/04/24 23:29 4 puff ONCE ONE Administration Doxycycline Hyclate 100 mg 10/04/24 23:26 10/04/24 23:52 Doxycycline Hycl 100 Mg Tablet PO 10/04/24 23:27 100 mg ONCE ONE Administration Miscellaneous 1 unit 10/04/24 23:28 10/04/24 23:52 Aerochamber/Optihaler MC 10/04/24 23:29 1 unit ONCE ONE Administration Prednisone 40 mg 10/04/24 23:24 10/04/24 23:52 Prednisone 20mg Tab PO 10/04/24 23:25 40 mg ONCE ONE Administration ORDERS Category Date Time Status CXR 2 view (NOT portable) [XR chest 2V] Stat Exams 10/04/24 22:36 Taken Rapid PCR Covid and Flu A/B Stat Lab 10/04/24 21:53 Completed Medical Decision Narrative: In summary patient is a 44-year-old female past medical history described above who presents emergency department for evaluation of cough in the setting of COPD. Patient is hemodynamically stable nontoxic-appearing upon, afebrile. I suspect patient is having a mild COPD exacerbation presumably from sick contacts. Differential includes pneumonia, among others. Initial workup be conducted with two-view chest x-ray. Initial inventions include prednisone, alb uterol, doxycycline. Hematologic labs were considered but patient is well- appearing otherwise will be deferred at this point, no chest pain to warrant troponin. Chest x-ray and repeat evaluation pending at time of transfer of care to the oncoming physician, Dr. Wilkinson. Minh: Upon my assumption of care patient is stable, resting comfortably. On lung exam patient has trace end expiratory wheezes but good air movement throughout without other adventitious sounds appreciated. Chest x-ray personally interpreted does not demonstrate acute lobar infiltrate. See radiology read for final interpretation. Patient received 4 puffs of albuterol in the MDI was provided to her to take home. She was instructed on how to use this at home. She was also treated in the ER with prednisone and doxycycline for suspected COPD exacerbation. These medications were also prescribed to her. I counseled the patient on smoking cessation. See procedure note for details. She is appropriate for discharge. Patient was given instructions on symptomatic management, medication use, follow up instructions, and return precautions for the emergency department. Patient indicated understanding and was discharged in stable condition. Procedures <Vickie Wilkinson MD - Last Filed: 10/05/24 00:29> Miscellaneous Procedure Procedure Performed: Smoking cessation I spent 15 minutes at bedside counseling the patient on smoking cessation. She is motivated to quit and states she has been trying, she has reduced her smoking quantity. She states it is just really hard to actually stop. She states in the past she took Wellbutrin but did not like the way it made her feel. I recommended her to follow-up closely with her primary care doctor for other smoking interventions if she requires additional support. She states she is going to make an appointment with them as soon as possible. I encouraged her to continue trying to stop since cessation of smoking will improve her lung function and her healing. I also explained to her that it is likely she will not get as sick with respiratory viruses if she is not smoking. She understands all this and is motivated to stop. CPT: 19017 Critical Care <Joshua Nixon MD - Last Filed: 10/04/24 23:46> Critical Care Time Critical Care Time: No
[2024-10-04 23:49] VITALS: BP 128/87; PULSE 88; RESP 16; TEMP 36.7; O2SAT 98
[2024-10-04] MEDS: AEROCHAMBER/OPTIHALER 1 UNIT MC (23:52)
[2024-10-04] MEDS: ALBUTEROL-HFA 90MCG/PUFF INHALER 8GM 4 PUFF IH (23:52)
[2024-10-04] MEDS: DOXYCYCLINE HYCL 100 MG TABLET PO (23:52)
[2024-10-04] MEDS: predniSONE 20MG TAB 40 MG PO (23:52)
== END 2024-10-04 23:58 | disposition home or self-care (01) ==
PROVIDERS: Emergency Provider Emergency Medicine
DX: J44.1 Chronic obstructive pulmonary disease with (acute) exacerbation (principal); R19.7 Diarrhea, unspecified; F17.210 Nicotine dependence, cigarettes, uncomplicated
CPT/HCPCS: 71046; 87636; 99283

== ENCOUNTER 2024-10-07 14:46 | Emergency (ER) | payer OTHER, SELFPAY ==
--- NOTE | 2024-10-07 15:08 | ED_ITS ---
<Statement entered by Yuri Haywood MD - 10/08/24 01:15> I was consulted by the BROWN, and we discussed the complexity of problems being addressed. I approved the treatment and management plan for this patient's care in the emergency department, thus performing a substantial portion of the medical decision making. Yuri Haywood MD Discharge Plan Disposition Patient Disposition: Home, Self-Care Condition: Good Prescriptions Prescriptions: New prednisone 50 mg tablet 50 mg PO DAILY 5 Days Qty: 5 0RF [id number] [Bromfed DM] 2-30-10 mg/5 mL syrup 5 ml PO Q4H PRN (Reason: sinus symptoms) Qty: 118 0RF ondansetron 4 mg tablet,disintegrating 4 mg PO QID PRN (Reason: nausea and vomiting) Qty: 10 0RF No Action ondansetron HCl 4 mg Tablet 4 mg PO Q8H PRN (Reason: Nausea) Qty: 21 0RF doxycycline hyclate 100 mg capsule 100 mg PO BID 5 Days Qty: 10 0RF prednisone 20 mg tablet 40 mg PO DAILY 4 Days Qty: 8 0RF ondansetron 4 mg tablet,disintegrating 4 mg PO Q6H PRN (Reason: nausea and vomiting) 5 Days Qty: 20 0RF ondansetron 4 mg tablet,disintegrating 4 mg PO Q8H PRN (Reason: nausea and vomiting) 4 Days Qty: 12 0RF ondansetron 4 mg tablet,disintegrating 4 mg PO Q6H PRN (Reason: nausea and vomiting) Qty: 10 0RF oseltamivir [Tamiflu] 75 mg capsule 75 mg PO BID 5 Days Qty: 10 0RF Referrals Follow up/Referrals: Jay Hobson II, MD [Primary Care Provider] - See instructions Activity Restrictions/Add. Instructions Additional Instructions/Restrictions: I have sent in more steroids Bromfed and Zofran to your pharmacy. I recommend following up with your PCP in about 48 hours if you have persistent new or worsening signs or symptoms. If you have any worsening symptoms you may return to the emergency department anytime as you need Clinical Impressions Clinical Impression: Acute exacerbation of chronic obstructive pulmonary disease, Lower respiratory tract infection Stand Alone Forms Stand Alone Forms: Work/School Release Print Language Print Language: Ivorian Discharge ED Provider: Yuri Haywood General Adult HPI General Chief complaint: Nausea/Vomiting/Diarrhea Stated complaint: V/D, Cough, SOB Time Seen by Provider: 10/07/24 15:08 History of Present Illness HPI narrative: Patient presents for cough shortness of breath and vomiting. Patient was seen days ago in the ER for cough congestion and diarrhea. Patient was ultimately found to have no COVID or flu infection and was treated for COPD and actually felt better at the time of discharge. She was prescribed doxycycline and prednisone. Patient reports that since then she has started having vomiting and her shortness of breath has returned. She denies chest pain fever chills hemoptysis hematochezia melena hematemesis hematuria dysuria. Related Data Previous Rx's ?Medication ?Instructions ?Recorded ondansetron HCl 4 mg tablet 4 mg PO Q8H PRN Nausea #21 tabs 02/14/22 ondansetron 4 mg disintegrating 4 mg PO Q6H PRN nausea and 10/24/22 tablet vomiting 5 days #20 tabs ondansetron 4 mg disintegrating 4 mg PO Q8H PRN nausea and 02/08/23 tablet vomiting 4 days #12 tabs ondansetron 4 mg disintegrating 4 mg PO Q6H PRN nausea and 06/15/23 tablet vomiting #10 tabs oseltamivir 75 mg capsule (Tamiflu) 75 mg PO BID 5 days #10 caps 06/15/23 doxycycline hyclate 100 mg capsule 100 mg PO BID 5 days #10 caps 10/04/24 prednisone 20 mg tablet 40 mg (2 x 20 mg) PO DAILY 4 days 10/04/24 #8 tabs [id number] 5 ml PO Q4H PRN sinus symptoms 10/07/24 2 mg-30 mg-10 mg/5 mL oral syrup #118 mL (Bromfed DM) ondansetron 4 mg disintegrating 4 mg PO QID PRN nausea and 10/07/24 tablet vomiting #10 tabs prednisone 50 mg tablet 50 mg PO DAILY 5 days #5 tabs 10/07/24 Allergies Allergy/AdvReac Type Severity Reaction Status Date / Time No Known Allergies Allergy Verified 02/14/22 20:58 [facility] Disclaimer: The information contained in this section may have been updated after the patient was seen, as this information can be updated by other users. Social History Smoking Status: Current every day smoker alcohol intake: never current occupational status: employed Travel in the last 8 weeks?: None Have you lived/traveled outside US in past 30 days?: No Contact w/someone who lives/traveled outside US past 30 days?: No Exposure to someone with infectious disease in past 14 days?: No Do you have a fever (greater than 100.4 F or 38 C)?: No Have you tested positive for COVID-19?: No Exposed to someone with COVID-19 in past 14 days?: No Do you have a sore throat?: No Do you have a cough?: No Do you have any weakness?: No Do you have any diarrhea?: No Are you experiencing any unusual bleeding?: No Do you have any muscle aches/pain?: No Do you have any abdominal pain?: No Are you experiencing loss of taste or smell?: No ROS Obtained: Yes Systems reviewed as appropriate & no additional complaints except as documented Physical Exam General General appearance: alert and in no apparent distress Respiratory Respiratory exam: Present normal lung sounds bilaterally Cardiovascular Cardiovascular exam: Present regular rate Neurological Exam Neurological exam: Present alert and oriented X3 Medical Decision Making Medical Records Medical records reviewed: Yes I reviewed the patient's medical records. Screening: Per USPSTF and CDC recommendations, given the prevalence of disease in our region, it is our hospital?s policy to screen for HIV and viral Hepatitis for a ll patients aged 18 and over and those with ongoing risk factors. Matthew Inquiry Pt receiving controlled substance: No Vital Signs: 10/07/24 15:20 10/07/24 15:24 10/07/24 17:23 Temperature 98.4 F 98.2 F Temperature Source Oral Oral Pulse Rate 67 80 Pulse Rate [Radial] 71 Respiratory Rate 18 18 Blood Pressure 146/89 H 144/80 H Blood Pressure [Left Arm] 167/111 H Blood Pressure Mean [Left Arm] 129 Blood Pressure Source Automatic Cuff Automatic Cuff Blood Pressure Source [Left Arm] Automatic Cuff Blood Pressure Position Sitting Blood Pressure Position [Left Arm] Sitting 02 Sat by Pulse Oximetry 97 100 Oxygen Delivery Method Room Air Room Air Room Air Lab Data Lab results reviewed: Yes I reviewed the patient's lab results. Lab Results 10/07/24 16:08: POC Glucose 86 10/07/24 16:18: Chlamy pneumoniae PCR Not detected, Adenovirus (PCR) Not detected, B. pertussis DNA (PCR) Not detected, Coronavirus OC43 (PCR) Not detected, Coronavirus HKU1 (PCR) Not detected, Coronavirus 229E (PCR) Not detected, SARS-CoV-2 (PCR) Not detected, Coronavirus NL63 (PCR) Not detected, Human Metapneumovir PCR Not detected, Influenza A (H1) PCR Not detected, Influ A (H1N1/09) PCR Not detected, Influenza A (H3) PCR Not detected, Influenza Type A (PCR) Not detected, Influenza Type B (PCR) Not detected, M. pneumoniae (PCR) Not detected, Parainfluenza 1 (PCR) Not detected, Parainfluenza 2 (PCR) Not detected, Parainfluenza 3 (PCR) Not detected, Parainfluenza 4 (PCR) Not detected, RSV (PCR) Not detected, Entero/Rhino (PCR) Detected A Orders (Tests/Meds): ED MEDICATIONS Discontinued Medications Generic Name Dose Route Start Last Admin Trade Name Freq PRN Reason Stop Dose Admin Albuterol/Ipratropium 6 ml 10/07/24 15:44 10/07/24 16:07 Ipratropium/Albuterol 3 Ml Neb IH 10/07/24 15:45 6 ml ONCE ONE Administration Methylprednisolone Sodium Succinate 125 mg 10/07/24 15:44 10/07/24 16:07 Methylprednisolone Sod Succ 125mg Vial IM 10/07/24 15:45 125 mg ONCE ONE Administration Ondansetron HCl 4 mg 10/07/24 15:44 10/07/24 16:07 Ondansetron 4mg Odt SL 10/07/24 15:45 4 mg ONCE ONE Administration ORDERS Category Date Time Status Full Resp Panel w/COVID ([facility]) Routine Lab 10/07/24 16:18 Completed POC Glucose,Bedside Routine Lab 10/07/24 16:08 Completed Medical Decision Narrative: In summary patient is a 44-year-old female who presents to the emergency department for evaluation of cough congestion vomiting. Patient is initially hypertensive with a blood pressure 167/111 breathing 18 times a minute satting at 97% on room air with a heart rate of 71 normal sinus rhythm on the bedside monitor upon arrival, afebrile at 98.4. Physical exam is remarkable for auscultated inspiratory and expiratory wheezes in all 4 medrano however patient has no accessory muscle use or increased work of breathing. It is not audible at the bedside. Abdomen soft nontender no rebound or guarding no rigidity normal bowel sounds. Differential diagnosis includes COPD exacerbation versus lower respiratory tract infection versus gastroenteritis etc. Initial workup will be conducted with full respiratory panel. Initial interventions include DuoNeb 125 of IM Solu-Medrol and Zofran. Initial workup reviewed by me shows that her respiratory panel was positive for rhinovirus/enterovirus. Upon repeat evaluation patient has no more clinical wheezing and subjectively reports feeling much better and is tolerating oral intake. Given this patient is appropriate for discharge with instructions to continue her doxycycline and steroids along with a new prescription for Zofran sent to her pharmacy. Patient was given strict return precautions and patient verbalized understanding agreement. Places where you can increase complexity: I informally interpreted the patient's chest x-ray or CT read and is remarkable for... Documenting what the awake overnight monitor shows with rate and rhythm Consideration of test but deferring. Ex: I considered chest x-ray on this patient however given that they have no oxygen requirement and are clear to auscultation all lung medrano will be deferred. Social determinants of health: Given that patient is undomiciled increases complexity. Given that patient has polysubstance abuse compounds all aspects of care Critical Care Critical Care Time Critical Care Time: Yes Attestation: On 10/07/24, the high probability of a clinically significant, sudden or life threatening deterioration of the following system(s) required my full and direct attention, intervention and personal management. The time I documented below is in addition to time spent performing reported procedures but includes the following listed in this critical care notation. Total Time Total Critical Care Time: 30
[2024-10-07 15:20] VITALS: BP 167/111; PULSE 71; RESP 18; TEMP 36.9; O2SAT 97; BMI 27.9
[2024-10-07 15:24] VITALS: BP 146/89; PULSE 67; O2SAT 100
[2024-10-07] MEDS: IPRATROPIUM/ALBUTEROL 3 ML NEB 6 ML IH (16:07)
[2024-10-07] MEDS: METHYLPREDNISOLONE SOD SUCC 125MG VIAL 125 MG IM (16:07)
[2024-10-07] MEDS: ONDANSETRON 4MG ODT 4 MG SL (16:07)
[2024-10-07 16:15] LABS: POC Glucose,Bedside 86 (70-110)
[2024-10-07 16:21] LABS: Adenovirus,PCR Not Detected (NotDetected); Bordetella Pertussis Not Detected (NotDetected); Chlamydophila Pneumoniae, PCR Not Detected (NotDetected); Coronavirus 19, PCR Not Detected (NotDetected); Coronavirus 229E Not Detected (NotDetected); Coronavirus NL63 Not Detected (NotDetected); Coronavirus OC43 Not Detected (NotDetected); Coronovirus HKU1,PCR Not Detected (NotDetected); Human Metapneumovirus Not Detected (NotDetected); Influenza A, PCR Not Detected (NotDetected); Influenza AH1, 2009 Not Detected (NotDetected); Influenza AH1, PCR Not Detected (NotDetected); Influenza AH3,PCR Not Detected (NotDetected); Influenza B, PCR Not Detected (NotDetected); Mycoplasma Pneumoniae, PCR Not Detected (NotDetected); Parainfluenza 1, PCR Not Detected (NotDetected); Parainfluenza 2, PCR Not Detected (NotDetected); Parainfluenza 3, PCR Not Detected (NotDetected); Parainfluenza 4, PCR Not Detected (NotDetected); Respiratory Syncytial Virus Not Detected (NotDetected)
[2024-10-07 17:23] VITALS: BP 144/80; PULSE 80; RESP 18; TEMP 36.8; O2SAT 97
[2024-10-07 19:17] LABS: Rhinovirus/Enterovirus Detected (NotDetected)
== END 2024-10-07 17:23 | disposition home or self-care (01) ==
PROVIDERS: Physician Assistant; Emergency Provider Emergency Medicine; PCP Radiology Radiation Oncology
DX: J44.1 Chronic obstructive pulmonary disease with (acute) exacerbation (principal); R11.2 Nausea with vomiting, unspecified; B34.1 Enterovirus infection, unspecified; F17.210 Nicotine dependence, cigarettes, uncomplicated
CPT/HCPCS: 0223U; 82962; 87633; 96372; 99283; J2919; Q0162